=== PATIENT | female | born 1960 | race Caucasian/White ===

== ENCOUNTER → 2017-01-06 | Outpatient (REF) ==
[2017-01-06 11:45] LABS: THYROID STIMULATING HORMONE 0.558 uIU/mL (0.465-4.680)
== END ==
LOC: ZLAB.WCH 09:25
PROVIDERS: Internal Medicine
DX: Z01.89 Encounter for other specified special examinations (principal)

== ENCOUNTER → 2017-03-18 | Outpatient (CLI) | payer OTHER, BC | LOC: MC.RAD 07:33 | DX: Z12.31 Encounter for screening mammogram for malignant neoplasm of breast (principal) ==

== ENCOUNTER → 2017-03-23 | Outpatient (CLI) | payer OTHER, BC | LOC: COL.RAD 08:26 | DX: M25.571 Pain in right ankle and joints of right foot (principal) | CPT/HCPCS: J3301; Q9967 ==

== ENCOUNTER 2017-09-13 15:24 | Emergency (ER) | payer BC ==
[~2017-09-13] VITALS: Ht 160 cm; Wt 86.4 kg
[2017-09-13 15:27] VITALS: TEMP 98.8
[2017-09-13 19:14] VITALS: PULSE 81
[2017-09-13 19:23] VITALS: BP 159/72
== END 2017-09-13 19:25 | disposition home or self-care (01) ==
LOC: COL.ER 15:24
DX: T18.128A Food in esophagus causing other injury, initial encounter (principal)
CPT/HCPCS: J1610; J2060; J2250; J2704; J3010; J7030

== ENCOUNTER → 2017-10-09 | Outpatient (REF) | LOC: ZLAB.WCH 18:12 | DX: Z01.89 Encounter for other specified special examinations (principal) ==

== ENCOUNTER → 2018-04-01 | Outpatient (CLI) | payer BC | LOC: MC.RAD 14:34 | DX: Z12.31 Encounter for screening mammogram for malignant neoplasm of breast (principal) ==

== ENCOUNTER → 2019-04-04 | Outpatient (CLI) | payer BC | LOC: MC.RAD 15:00 | DX: Z12.31 Encounter for screening mammogram for malignant neoplasm of breast (principal) ==

== ENCOUNTER → 2020-04-12 | Outpatient (CLI) | payer BC | LOC: MC.RAD 07:28 | DX: Z12.31 Encounter for screening mammogram for malignant neoplasm of breast (principal) ==

== ENCOUNTER → 2023-07-30 | Outpatient (CLI) | payer OTHER | LOC: CANSCHCLI → MC.RAD 16:57 | DX: Z12.31 Encounter for screening mammogram for malignant neoplasm of breast (principal) ==